=== PATIENT | female | born 1985 | race Caucasian/White ===

== ENCOUNTER 2022-05-16 16:30 | Emergency (ER) | payer BC, SELFPAY ==
--- NOTE | ~2022-05-16 | XR_ITS ---
EXAMINATION: XR chest 2V DATE: 05/16/2022 17:10 INDICATION: COVID positive presenting with shortness of breath and midsternal chest tightness TECHNIQUE: PA and lateral views of the chest were obtained. COMPARISON: None FINDINGS: The lungs are clear with no focal airspace opacities, pulmonary edema, pleural effusion or pneumothor ax. The cardiomediastinal silhouette is normal. Mild lower thoracic levocurvature. IMPRESSION: 1. No acute cardiopulmonary disease. Reviewed, dictated and finalized at location A.
--- NOTE | 2022-05-16 16:33 | ECG_ITS ---
Measurements Intervals [place] Rate: 109 P: 27 MS: 137 QRS: 9 QRSD: 90 T: 5 QT: 329 QTc: 445 Interpretive Statements SINUS TACHYCARDIA POOR R-WAVE PROGRESSION WITH LOW QRS VOLTAGE IN THE LATERAL PRECORDIAL LEADS ABNORMAL RHYTHM ECG NO PREVIOUS ECG AVAILABLE FOR COMPARISON Electronically Signed On 05-17-2022 14:28:43 CDT by Marcello Guevara M.D.
[2022-05-16 16:34] VITALS: BP 140/91; PULSE 106; RESP 18; TEMP 36.8; O2SAT 100
[2022-05-16 16:55] LABS: Basophils Absolute Auto 0.1 K/mm3 (0.0-0.1); Basophils Percent Auto 0.5 % (0.2-1.2); Eosinophils Absolute Auto 0.2 K/mm3 (0-0.3); Eosinophils Percent Auto 1.5 % (0-4.4); Hemoglobin 12.3 g/dL (12.0-15.0); Immature Granulocyte Absolute 0.03 K/mm3 (0.00-0.031); Immature Granulocyte Percent A 0.3 % (0-0.5); Lymphocytes Absolute Auto 2.49 K/mm3 (0.9-3.2); Lymphocytes Percent Auto 25.3 % (18.3-44.2); Mean Corpuscular Hemoglobin 23.2 pg (26-34); Mean Corpuscular Volume 77.2 fl (80-100); Mean Platelet Volume 10.3 fl (7.4-10.4); Monocytes Absolute Auto 0.8 K/mm3 (0.1-0.6); Monocytes Percent Auto 8.1 % (2.6-8.5); Neutrophils Absolute Auto 6.3 K/mm3 (1.3-6.7); Neutrophils Percent Auto 64.3 % (45.5-73.1); Platelet Count Result 412 k/mm3 (150-375); Red Blood Count 5.31 M/mm3 (4.2-5.4); Red Cell Distribution Width 18.5 % (11.5-14.5); White Blood Count 9.8 K/mm3 (4.5-10.0)
[2022-05-16 17:00] VITALS: O2SAT 99
--- NOTE | 2022-05-16 17:05 | PC.NURSE ---
Patient off unit to Radiology.
--- NOTE | 2022-05-16 17:05 | ED.CHESTPAIN ---
HPI - Chest Pain General Chief Complaint: Chest Pain Stated Complaint: CHEST PAIN Time Seen by Provider: 05/16/22 16:58 History of Present Illness HPI narrative: 36-year-old female presents emergency room with some nonspecific chest pain and feels like she is little short of breath. Patient had COVID a few weeks ago. She had the same type feeling during that timeframe. However she feels like she was over the COVID. She denies any chills or fever. No pressure type sensation just is nonspecific discomfort in the midportion of her chest and when she tries to take a deep breath or talk excessively she feels short of breath. She not have any productive cough at this point. No swelling in her legs. No history of DVTs. She has no significant past medical history at all. She was fully vaccinated for COVID. The second time she has had it. Related Data Allergies Allergy/AdvReac Type Severity Reaction Status Date / Time No Known Allergies Allergy Mild Verified 09/09/10 22:48 Review of Systems Review of Systems: CONSTITUTIONAL: Denies fever, chills, or sweats. EYES: Denies visual changes, redness, or discharge. ENT: Denies rhinorrhea, congestion, sore throat, or otalgia. CARDIOVASCULAR: Chest discomfort and some mild dyspnea as noted RESPIRATORY: Denies cough but having some milddyspnea. GASTROINTESTINAL: Denies abdominal pain, nausea, vomiting, or diarrhea. GENITOURINARY: Denies dysuria or hematuria. SKIN: Denies rash or itching. MUSCULOSKELETAL: Denies back pain, joint pain, or myalgia. No leg swelling NEUROLOGIC: Denies headache, numbness, or weakness. PSYCHIATRIC: Denies anxiety or depression. [facility] Past Medical History Medical History (Updated 05/16/22 @ 17:55 by Frederic Juares DO) COVID Social History Social History (Updated 05/16/22 @ 17:08 by Frederic Juares DO) Smoking status: Never smoker Alcohol intake: never Exam Narrative: APPEARANCE: Well appearing, no pain or distress, well-nourished. Head normocephalic and atraumatic. EYES: PERRLA/EOMI, conjunctivae very clear. NOSE: Normal with no drainage EARS:TMS clear Reggie Quinonez, with good light reflex. THROAT: Pharynx clear, no exudate. NECK: Supple. No adenopathy, no masses. RESPIRATORY: Airway patent, respirations nonlabored. Clear to auscultation bilaterally, no rales, rhonchi, wheezing. CARDIOVASCULAR: Regular rate and rhythm without murmurs, rubs, or gallops. ABDOMINAL: Soft, nontender, nondistended, no hepatosplenomegaly Musculoskeletal: Moves all extremities. Strength/ROM intact, No edema, No calf tenderness. NEURO: Alert. Cranial nerves II through XII intact. Normal gait. Good coordination. Nonfocal examination. SKIN:: Warm, dry. Normal Color PSYCHIATRIC: Normal affect/mood, normal interaction Course Vital Signs Vital signs: Vital Signs Temperature 98.2 F 05/16/22 16:34 Pulse Rate 106 H 05/16/22 16:34 Respiratory Rate 18 05/16/22 16:34 Blood Pressure 140/91 H 05/16/22 16:34 Pulse Oximetry 100 05/16/22 16:34 Oxygen Delivery Room Air 05/16/22 16:34 Temperature 98.2 F 05/16/22 16:34 Pulse Rate 106 H 05/16/22 16:34 Respiratory Rate 18 05/16/22 16:34 Blood Pressure 140/91 H 05/16/22 16:34 Pulse Oximetry 100 05/16/22 16:34 Oxygen Delivery Room Air 05/16/22 16:34 MDM - Chest Pain MDM Narrative Medical decision making narrative: Work-up and evaluation emergency room was unremarkable. EKG shows no acute findings. Chest x-ray is negative. Laboratory work-up including troponin and D-dimer all noted to be normal. This was all reviewed with the patient. I am not finding any significant abnormalities that would warrant additional work-up and evaluation emergency room today. Advised the patient she is to follow with her primary physician. Went over with her some of the signs and symptoms of reflux and esophageal spasm and does not seem that she is having any of those symptoms as well. Lab Data Result aleks
[2022-05-16 17:06] LABS: INR 1.1; Prothrombin Time 13.4 Seconds (11.1-14.7)
[2022-05-16 17:07] LABS: Alanine Aminotransferase 39 U/L (6-35); Albumin Level 4.9 g/dL (3.5-5.1); Alkaline Phosphatase 96 U/L (38-126); Anion Gap 8 mmol/L (8-16); Aspartate Amino Transferase 22 U/L (14-36); Bilirubin,Total 1.1 mg/dL (0.2-1.3); Blood Urea Nitrogen 8 mg/dL (7-17); Calcium 9.1 mg/dL (8.4-10.2); Carbon Dioxide 26 mmol/L (22-30); Chloride 104 mmol/L (98-107); Estimated CRCL calculation 99 ml/min; Estimated Glomerular Filt Rate > 60; Glucose 99 mg/dL (65-110); Lipase 66 U/L (23-300); Potassium 3.5 mmol/L (3.4-5.0); Sodium 138 mmol/L (137-145)
[2022-05-16 17:08] LABS: Partial Thromboplastin Time 29.9 SECONDS (22.3-36.8)
[2022-05-16 17:17] LABS: Troponin I < 0.012 ng/mL (0.000-0.034)
[2022-05-16 17:42] LABS: D Dimer < 0.27 ug/mL (<0.48)
--- NOTE | 2022-05-16 17:52 | PC.NURSE ---
ASA discontinued per MD.
== END 2022-05-16 18:15 | disposition home or self-care (01) ==
PROVIDERS: Emergency Provider Emergency Medicine
DX: R07.89 Other chest pain (principal); Z86.16 Personal history of COVID-19
CPT/HCPCS: 36415; 71046; 80053; 83690; 84484; 85025; 85380; 85610; 85730; 93005; 99284